=== PATIENT | male | born 1995 | race African-American/Black ===

== ENCOUNTER 2021-06-18 03:19 | Inpatient (IN) | payer OTHER ==
[~2021-06-18] VITALS: Ht 152.4 cm; Wt 68.0 kg
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
[~2021-06-18 03:19] MED LIST: BACLOFEN20 MG PO; MORPHINE SULFAT15 MG PO; OXYBUTYNIN 5 MG5 M2 PO; PEDIA-LAX50 MG/15 M PO; ZOSYN 3.373.375 GM/1 IV
[2021-06-18 03:32] VITALS: BP 100/61
[2021-06-18] MEDS ORDERED: DITROPAN PO (03:42)
[2021-06-18] MEDS ORDERED: BACLOFEN 10MG T10 MG PO (03:43)
[2021-06-18] MEDS ORDERED: MS CONTIN 30 MG30 M1 PO (03:44)
[2021-06-18 04:17] LABS: HEMATOCRIT 25.1 % (42.0-52.0); HEMOGLOBIN 7.9 gm/dL (14.0-18.0); MCH 23.9 pg (26.0-34.0); MCHC 31.3 g/dL (28.0-37.0); MCV 76.3 fL (80.0-100.0); PLATELET COUNT 498 thou/uL (150-400); RBC 3.29 mil/uL (4.50-6.00); RDW 16.1 % (10.5-14.5); WBC 20.3 thou/uL (4.0-11.0)
[2021-06-18 04:26] LABS: CALCIUM 8.6 mg/dL (8.5-10.1); CREATININE 0.6 mg/dL (0.7-1.3)
[2021-06-18 06:32] LABS: ABSOLUTE NEUTROPHILS 14.8 thou/uL (1.4-8.2)
[2021-06-18 06:33] LABS: ANISOCYTOSIS 1+; HYPOCHROMASIA 1+; MICROCYTES 1+; PLATELET ESTIMATE INCREASED
[2021-06-18 08:20] VITALS: BP 82/40
[2021-06-18 14:20] LABS: % SATURATION 13 % (20-39); IRON 22 ug/dL (65-175); TIBC 167 ug/dL (250-450)
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
[2021-06-18 21:28] VITALS: BP 93/37
[2021-06-18 22:20] VITALS: BP 93/37
[2021-06-18 23:08] VITALS: BP 96/50
[2021-06-19 04:53] LABS: ABSOLUTE NEUTROPHILS 8.2 thou/uL (1.4-8.2); BASOPHILS 0.3 % (0.0-2.0); EOSINOPHILS 1.6 % (0.0-3.0); HEMATOCRIT 23.8 % (42.0-52.0); HEMOGLOBIN 7.7 gm/dL (14.0-18.0); LYMPHOCYTES 10.9 % (24.0-44.0); MCH 25.1 pg (26.0-34.0); MCHC 32.2 g/dL (28.0-37.0); MCV 77.8 fL (80.0-100.0); MONOCYTES 7.2 % (1.0-8.0); PLATELET COUNT 503 thou/uL (150-400); RBC 3.06 mil/uL (4.50-6.00); RDW 16.6 % (10.5-14.5); WBC 10.3 thou/uL (4.0-11.0)
[2021-06-19 04:54] LABS: CALCIUM 7.9 mg/dL (8.5-10.1); CREATININE 0.8 mg/dL (0.7-1.3); MAGNESIUM 2.2 mg/dL (1.8-2.4); POTASSIUM 4.4 mmol/L (3.5-5.1)
--- NOTE | 2021-06-19 04:59 | NUR ---
PT ARRIVED ON THE UNIT IN AN LOW AIR LOSS BED AT 2230 IN A STABLE CONDITION. P IS ALERT AND ORIENTED X4. PT WAS ORIENTED TO THE ROOM AND EDUCATED ON THE USE OF CALL LIGHT.PT HAS SUPRAPUBIC CATH AND COLOSTOMY IN PLACE. PICTURES WERE TAKEN OF WOUNDS AND DRSG CHANGE WAS DONE. PT C/O PAIN WHICH WAS MANAGED BY PRN PAIN MEDS. PT ON RA. PT IS PARAPLEGIC AND PREFERS BED HIGH. CALL LIGHT WITHIN REACH. WILL CONTINUE TO MONITOR.
[2021-06-19 07:35] VITALS: BP 81/42
[2021-06-19 07:45] VITALS: BP 96/57
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
--- NOTE | 2021-06-19 09:49 | NUR ---
Nutrition: Fe-22. REC order iron supplementation
--- NOTE | 2021-06-19 12:26 | NUR ---
PT ADMITTED RELATED TO BEDSORES, UTI, PARAPLEGIA. CM REVIEWED CHART AND SPOKE WITH CARE TEAM. CM MET WITH PT AT BEDSIDE THIS DAY. PT APPEARED TO BE A&O X4. CM ROLE INTRODUCED. PT INDICATED HE IS STILL LIVING IN A THRID FLOOR APARTMENT WITH HIS SISTER. HE INDICATED THAT HE HAD A WC FOR HOME USE. PT INDICATED HE HAD RETURNED HOME FROM [facility] WHERE HE HAD GONE FROM HER UPON DC 01/29/21 AND THAT THEY HAD SET UP NURSING FOR HIM BUT THAT NO ONE EVER CAME. PT INDICATED HE DOESN'T HAVE A PCP AND HASN'T HAD ANY MEDICAL ATTENTION SINCE DC FROM [facility]. PT INDICATED HE IS ABLE TO TRANSFER HIMSELF IN THE HOME SETTING. PT INDICATED HE WOULD BE RECEPTIVE TO [facility] IF NEEDING IV ABX AND WC. CARE TEAM INDICATED HE WILL LIKELY NEED SURGICAL INTERVENTION AND IV ABX. CM FAXED REFERRAL FOR REVIEW. CM FOLLOWING REGARDING DC PLANNING.
--- NOTE | 2021-06-19 15:31 | NUR ---
Assumed pt care at 7am.Pt in bed most of the time this shift. Assessment completed.Pain shot given twice this shift so far. Pt has poor appetite and always on the phone.Dr Norman and Evaristo here,order noted.Oral fluid intake encouraged.Dr Guerrero notified about sacral wound debridement. Will continue to monitor.
[2021-06-19 15:42] VITALS: BP 95/56
[2021-06-19 19:47] VITALS: BP 81/44
--- NOTE | 2021-06-20 04:02 | NUR ---
06/19/21 assumed care @ 1900, pain management and antibiotic therapy provided as ordered. Patient was resistant to lab draw for vanco trough. A second watch parts grinder was able to gain cooperation and lab draw was done. Pharmacy ordered a new Vancomycin dose and was provided. patent refuses to allow the bed to be posiitoned low, and so it is at a high position. Will continue to monitor for comfort and safety.
[2021-06-20 07:15] VITALS: BP 94/46
--- NOTE | 2021-06-20 14:08 | NUR ---
ASSUMED PT CARE THIS AM. PT A&OX4, ABLE TO MAKE NEEDS KNOWN. PATIENT IV REMAINS PATENT, FLUIDS INFUSING WITHOUT ISSUE. PATIENT HAS A COLOSTOMY AND A SUPRAPUBIC CATHETER DRAINING WITHOUT ISSUE. PATIENT REPORTS PAIN THAT DECREASES WITH PAIN MEDICATION PER EMAR. CALL LIGT WITHI NREACH. BED ALARM IS ON, BUT PATIENT REQUESTING TO HAVE CONTROL OF THE BED HEIGHT AND IS RAISING BED HIGH IT WILL GO. EDUCATION ON FALL PRECAUTIONS ENFORCED.
--- NOTE | 2021-06-20 17:22 | NUR ---
A #5F DOUBLE LUMEN POWER PICC WAS PLACED PER HOSPITAL POLICY AFTER A BEDSIDE TIMEOUT WAS COMPLETED. THE RIGHT BASILIC WAS WIDLEY PATENT. THE LINE WAS TRIMMED TO 40CM AND ADVANCED WITHOUT DIFFICULTY. THE LINE WAS CONFIRMED WITH 3CG AT 4CM EXTERNAL. SECURED AND RELEASED FOR USE
--- NOTE | 2021-06-21 02:55 | NUR ---
ASSUMED PT CARE AT AROUND 1915 HRS. PT HAD JUST GOT OFF THE SHOWER AND WANTED WOUND DRSG CHANGE DONE. WELL IT WAS SHIFT CHANGE AND HE WAS AGREEABLE. UPON FINISHING MY WORK, PT WAS ALSO NOT READY FOR THE DRSG CHANGE. HE WANTED TO WAIT UNTIL HE CAN GET HIS IVP MEDS AT AROUND 0500. PT IS VERY PARTICULAR ABOUT HIS CARE AND COMES OFF RUDE AND WORKED UP MOST OF THE TIME.BED IS UP HIGH IN THE AIR.WENT TO ALL THE FLOORS TO FIND A TURKEY SANDWICH FOR HIM WITH NO LUCK. ROOM AIR- HE DOES NOT APPEAR TO BE IN ANY DISTRESS.AFEBRILE. WILL CONTINUE WITH POC TILL EOS.
[2021-06-21 08:00] VITALS: BP 93/55
--- NOTE | 2021-06-21 14:27 | NUR ---
ASSUMED PT CARE THIS AM. PT A&OX4, ABLE TO MAKE NEEDS KNOWN. PATIENT PICC LINE REMAINS PATENT, MEDICATIONS INFUSING. PATIENT INSTRUCTED TO CALL WHEN IV PUMP ALARMS, PATIENT INSTEAD IS TURNING THE MACHINE OFF, DELAYING MEDICATION FROM INFUSING IN A TIMELY MANNER. PATIENT WOUND DRESSING WAS COMPLETED THIS AM. PATIENT MANAGES OWN COLOSTOMY. SUPRAPUBIC CATHETER DRAINING YELLOW URINE. PATIENT REMAINS ON ROOM AIR. FALL PRECAUTIONS ARE IN PLACE, CALL LIGHT WITHIN REACH.
[2021-06-21 17:00] VITALS: BP 91/49
[2021-06-21 19:26] VITALS: BP 98/59
--- NOTE | 2021-06-22 04:20 | NUR ---
ASSUMED PT CARE THIS PM. PT IS ALERT AND ORIENTED X4. PT HAS DOUBLE LUMEN PICC TO FREDRICK. DRGS CHANGE DONE; PT WAS GIVEN PRN PAIN MEDS PRIOR TO DRGS CHANGE. PT WAS INFORMED OF BEING NPO AT MIDNIGHT AND PT VERBALIZE UNDERSTANDING. MEDS WERE GIVEN PER EMAR ORDERS. PT DID NO VERBALIZE ANY OTHER CONCERNS.PT PREFERS TO HAE BED HIGH. PT HAS SUPRAPUBIC CATH AND COLOSTOMY IN PLACE. WILL CONTINUE TO MONITOR.
[2021-06-22 04:52] VITALS: BP 103/62
[2021-06-22 07:00] VITALS: BP 95/59
--- NOTE | 2021-06-22 13:33 | NUR ---
CARE TEAM INDICATED THAT PT IS HAVING I&D THIS DAY. CM CALLED AND UPDATED [facility]. CM FOLLOWING REGARDING DC PLANNING.
--- NOTE | 2021-06-22 15:21 | NUR ---
report given to Dayana in surgery at 1222 on 06/22/2021. 1244 pt left floor with transport to procedure.
[2021-06-22 17:00] VITALS: BP 121/61
[2021-06-22 19:17] VITALS: BP 132/60; BP 2132/60
--- NOTE | 2021-06-23 04:24 | NUR ---
PT IS A/O X4 AND IS ON BEDREST. ROOM AIR. VSS. AFEBRILE. MEDICATIONS GIVEN PER MAR. DRSG TO BUTTOCKS AND BILAT TUBEROSITY COMPLETED. CURRENTLY DRSGS ARE C/D/I. PT C/O PAIN. PRN PAIN MEDICATION GIVEN DIRECTED. FALL PRECUATIONS IN PLACE, CALL LIGHT IS WITHIN REACH. WILL CONTINUE TO MONITOR.
[2021-06-23 06:21] LABS: ALBUMIN 1.8 g/dL (3.4-5.0); CALCIUM 8.3 mg/dL (8.5-10.1); CREATININE 0.7 mg/dL (0.7-1.3); PHOSPHORUS 3.7 mg/dL (2.5-4.9); POTASSIUM 4.7 mmol/L (3.5-5.1)
[2021-06-23 08:00] VITALS: BP 84/48
--- NOTE | 2021-06-23 12:15 | NUR ---
PT HAD I&D YESTERDAY AND HAD BONE BIOPSY WITH CULTURE DONE. PT CONTINUES ON ABX. CM FAXED UPDATES TO [facility]. CM FOLLOWING REGARDING DC PLANNING.
[2021-06-23 20:35] VITALS: BP 106/38
--- NOTE | 2021-06-24 06:18 | NUR ---
PAIN CONTROLLED THIS SHIFT. PATIENT REFUSED THIS NURSE TO CHECK HIS WOUNDS. PATIENT IS RUDE TO STAFF WHEN WE TRY TO GET HELP. PATIENT TURNS HIMSELF. FALL PRECAUTION IN PLACE. PATIENT IN BED WATCHING TV.
[2021-06-24 06:43] LABS: ALBUMIN 1.8 g/dL (3.4-5.0); CALCIUM 8.1 mg/dL (8.5-10.1); CREATININE 0.6 mg/dL (0.7-1.3); PHOSPHORUS 3.5 mg/dL (2.5-4.9); POTASSIUM 4.3 mmol/L (3.5-5.1)
[2021-06-24 07:00] VITALS: BP 100/53
[2021-06-24 09:33] LABS: HEMATOCRIT 25.3 % (42.0-52.0); HEMOGLOBIN 7.7 gm/dL (14.0-18.0); MCHC 30.6 g/dL (28.0-37.0); MCV 81.9 fL (80.0-100.0); RBC 3.08 mil/uL (4.50-6.00); RDW 18.6 % (10.5-14.5); WBC 8.9 thou/uL (4.0-11.0)
[2021-06-24 09:39] LABS: CALCIUM 8.4 mg/dL (8.5-10.1); CREATININE 0.7 mg/dL (0.7-1.3); MAGNESIUM 2.1 mg/dL (1.8-2.4); POTASSIUM 4.6 mmol/L (3.5-5.1)
--- NOTE | 2021-06-24 10:25 | NUR ---
Patient refusing wound care at this time.
--- NOTE | 2021-06-24 14:12 | NUR ---
CM HAD SENT CLINICAL UPDATED ON PT TO [facility] YESTERDAY. CARE TEAM TODAY INDICATING THAT PT IS MEDICALLY STABLE TO DC TO [facility]. CM INDICATED THAT TO [facility] AND ASKED THAT THET SEEK AUTH. CM FOLLOWING REGARDING DC PLANNING.
--- NOTE | 2021-06-24 15:07 | PATH ---
[facility] [address] [place] [address] PATHOLOGY RPT PROCEDURE Name: JORGE PARKER Room #: 464-P ADM IN M.R.#: [id number] Admission: 06/18/21 Date of : 89 Discharge: Report #: [id number] Path Case #: [id number] [facility] Accession Number: [id number] . 01 Material submitted: . sacrum - SACRAL BONE FOR HISTOLOGY . 01 Clinical history: . SACRAL WOUND INCISION AND DRAINAGE SACRAL WOUND BED SORES, UTI, PARAPLEGIA . 02 Diagnosis: Bone (sacral bone debridement): - Acute and chronic necrotizing osteomyelitis identified. (MELINDA:sathya; 06/24/2021) R 06/24/2021 1349 Local . 02 Comment: We find no evidence of malignancy in any of the tissue examined. (MELINDA:sathya; 06/24/2021) . 02 Electronically signed: . Bandar Sutton MD, Pathologist NPI- [id number] . 01 Gross description: . The specimen is received fresh, labeled "Jorge Parker sacral (histology)". Received is a segment of pink-avelar bone measuring 1.0 x 1.0 x 0.5 cm in greatest dimensions. The specimen is submitted entirely in cassette A1, following decalcification. (CAA; 06/23/2021) QA/QA 06/23/2021 0842 Local . 02 Pathologist provided ICD-10: M86.8X8 . 02 CPT . 879568, [id number] Specimen Comment: A courtesy copy of this report has been sent to [phone] Specimen Comment: [phone] Specimen Comment: Report sent to / DR VALERIO Performed at: 01 [facility] [address] [id number] MD Souleymane Kathleen MD Phone: [phone] [place] [address] PATHOLOGY RPT PROCEDURE Name: JORGE PARKER Room #: 464-P ADM IN M.R.#: [id number] Admission: 06/18/21 Date of : 89 Discharge: Report #: [id number] Path Case #: [id number] Performed at: 02 [facility] [address] [id number] MD Bandar Sutton MD Phone: [phone]
[2021-06-24] MEDS ORDERED: VANCO 1.251.25 GM/25 IVPB (15:23)
[2021-06-24] MEDS ORDERED: ZOSYN 3.373.375 GM/1 IV (15:24)
--- NOTE | 2021-06-24 17:34 | NUR ---
Patient was discharged to [facility] today, left with transport and his belongings to include wheelchair, clothes, phone, and gas torch solderer. Patient was AOX4 for me my shift, pain well controlled with medication. Patient allowed me to do wound care as ordered prior to leaving. All questons and concerns were addressed by patient and recieving facility
== END 2021-06-24 17:28 | DRG 853 ==
LOC: ER 03:19 → 4W 05:31 → EROBS 05:31 → 4W 22:11
PROVIDERS: Emergency Medicine; Internal Medicine; Nurse Practitioner; Specialist; ADMIT Hospitalist; ATTEND Hospitalist
DX: A41.9 Sepsis, unspecified organism (principal); L89.894 Pressure ulcer of other site, stage 4; L89.154 Pressure ulcer of sacral region, stage 4; M86.8X8 Other osteomyelitis, other site; G82.20 Paraplegia, unspecified; Z20.822 Contact with and (suspected) exposure to COVID-19; Z79.899 Other long term (current) drug therapy; D63.8 Anemia in other chronic diseases classified elsewhere; F17.210 Nicotine dependence, cigarettes, uncomplicated
CPT/HCPCS: 10040; 27000; 50010; 50101; 50386; 50403; 57103; 57119; 57120; 62110; 62900; 70005